=== PATIENT | male | born 1955 | race Caucasian/White ===

== ENCOUNTER 2017-08-17 06:34 | Outpatient (CLI) | payer OTHER ==
--- NOTE | ~2017-08-17 | HEMODYNAMI ---
PATIENT:MELINDA HELM MEDICAL RECORD: [id number] : 51 LOCATION:D.CAT ADMISSION DATE: 08/17/17 Generatedon:08/17/20179:01 Patient name: MELINDA HELM Patient #: [id number] SSN: : 1955 Date of study: 08/17/2017 Page: Of Hemodynamic Procedure Report Patient Data Patient Demographics Procedure consent was obtained First Name: MELINDA Gender: Male Last Name: AILEEN : 1955 [facility] Initial: EPIFANIO Age: 61 year(s) Patient #: [id number] Race: Unknown Additional ID: [id number] Contact details [address]: [address] [place] [address] State: [place] City: [place] Zip code: [address] Past Medical History Allergies: No known allergies Admission Admission Data Admission Date: 08/17/2017 Admission Time: 6:34 Lab Results Lab Result Date: 08/17/2017 Lab Result Time: 0:00 Biochemistry Name Units Result Min Max Creatinine mg/dl 1.1 --(--*-)-- 0.6 1.3 CBC Name Units Result Min Max Hemoglobin g/dl 16.2 --(--*-)-- 13.5 17.5 Procedure Procedure Types Cath Procedure Diagnostic Procedure [facility] w/Coronaries Aortic Root Angiography Miscellaneous Procedures Moderate Sedation up to 30 minutes Procedure Description Procedure Date Procedure Date: 08/17/2017 Procedure Start Time: 8:33 Procedure End Time: 9:01 Procedure Staff Name Function Fabrice Ramirez MD Performing Physician Basim Milligan RT Scrub Indu Helm RN Nurse Armida Hopper RT Monitor Procedure Data Cath Procedure Fluoroscopy Diagnostic fluoroscopy Total fluoroscopy Time: 7.4 time: 7.4 min min Diagnostic fluoroscopy Total fluoroscopy dose: dose: 1570 mGy 1570 mGy Contrast Material Contrast Material Type Amount (ml) Isovue 300 130 Entry Location Entry Primary Successful Side Size Upsize Upsize Entry Closure Succes sful Closure Location (Fr) 1 (Fr) 2 (Fr) Remarks Device Remarks Femoral Right 5 Fr Exoseal artery Estimated blood loss: 5 ml Diagnostic catheters Device Type Used For End Catheter Placement Terumo 5Fr Matteo 110cm Left Coronary catheter Angiography Diagnostic Infinity 5Fr Right Coronary AR 2 MOD catheter Angiography Diagnostic Infinity 5Fr LV Angiography Pigtail catheter Diagnostic Infinity 5Fr Aortic Root Pigtail catheter Angiography Diagnostic Terumo 5Fr Right Coronary [place] 110cm catheter Angiography Diagnostic Infinity 5Fr Right Coronary MPA-2 catheter Angiography Diagnostic Infinity 5Fr Right Coronary AL 1 catheter Angiography Procedure Complications No complications Procedure Medications Medication Administration Route Dosage Oxygen NC 2 l/min Benadryl I.V. 50 mg Lidocaine 2% added to field 20 Heparin Flush Bag added to field 2 bags (1000units/500ml NS) 0.9% NaCl I.V. 100 ml/hr Versed I.V. 1 mg Fentanyl I.V. 50 mcg Versed I.V. 1 mg Fentanyl I.V. 50 mcg Hemodynamics Rest HGB: 16.2 (g/dl) Heart Rate: 66 (bpm) Pressure Samples Time Site Value (mmHg) Purpose Heart Use Rate(bpm) 8:46 LV 142/-1,18 EDP 72 8:46 AO 133/76(102) Pullback 72 8:46 LV 156/6,30 Pullback 72 Gradients Valve Time Site 1 Site 2 Mean SEP/DFP Peak To Heart Use (mmHg) (sec/min) Peak Rate (mmHg) (bpm) Aortic 8:46 LV AO 13 7 23 72 156/6,30 133/76(102) Calculations Valve P-P Mean Valve Index Valve Source Name Gradient Area Flow (cm2) Aortic 23 13 23 13 Snapshots Pre Cath Intra NCS Post Cath Vital Signs Time Heart Resp SPO2 NIBP (mmHg) Rhythm Pain Sedation Rate (ipm) (%) Status Level (bpm) 8:19:26 63 18 99 148/93(114) NSR 0 (11) 10(A) , No pain 8:24:39 60 12 100 143/100(115) NSR 0 (11) 10(A) , No pain 8:28:49 73 16 98 145/97(111) NSR 0 (11) 10(A) , No pain 8:33:01 66 16 97 158/93(108) NSR 0 (11) 9(A) , No pain 8:37:19 72 14 97 147/92(115) NSR 0 (11) 9(A) , No pain 8:42:16 74 14 98 150/91(110) NSR 0 (11) 9(A) , No pain 8:46:34 94 15 99 137/77(109) NSR 0 (11) 9(A) , No pain 8:50:44 72 17 99 146/88(110) NSR 0 (11) 10(A) , No pain 8:54:56 71 16 99 143/91(111) NSR 0 (11) 10(A) , No pain 8:59:08 75 17 99 146/91(113) NSR 0 (11) 10(A) , No pain Medications Time Medication Route Dose Verified Delivered Reason Notes Effec tiveness by by 8:22:47 Oxygen NC 2 Fabrice Buffie used for l/min James Helm RN procedure 8:22:54 Benadryl I.V. 50 mg Fabrice Buffie used for James Helm RN procedure 8:23:02 Lidocaine 2% added 20ml Fabrice Fabrice for local to vial James Ramirez MD anesthetic field 8:23:08 Heparin Flush added 2 Fabrice Fabrice used for Bag to bags James Ramirez MD procedure (1000units/500ml field NS) 8:23:17 0.9% NaCl I.V. 100 Fabrice Buffie Per ml/hr James Helm RN physician 8:29:30 Versed I.V. 1 mg Fabrice Buffie for James Helm RN sedation 8:29:36 Fentanyl I.V. 50 Fabrice Buffie for mcg James Helm RN sedation 8:35:11 Versed I.V. 1 mg Fabrice Buffie for James Helm RN sedation 8:35:15 Fentanyl I.V. 50 Fabrice Buffie for mcg James Helm RN sedation Procedure Log Time Note 8:00:52 Indu Helm RN sent for patient. Start room use. 8:00:53 Time tracking: Regular hours 8:00:57 Plan of Care:Hemodynamics will remain stable., Cardiac rhythm will remain stable., Comfort level will be maintained., Respiratory function will remain adequate., Patient/ family verbilizes understanding of procedure., Procedure tolerated without complication., Recovers from procedure without complications.. 8:10:41 Patient received from Pre/Post Procedure Room to CCL 2 Alert and oriented. Tansferred to table in Supine position. 8:10:42 Warm blankets applied, and yasmin hugger turned on for patient comfort. 8:10:42 Correct patient and procedure confirmed by team. 8:10:43 Signed procedure consent form obtained from patient. 8:10:43 ECG and BP/O2 sat monitors applied to patient. 8:10:44 Baseline sample Acquired. 8:10:50 Full Disclosure recording started 8:18:19 Vital chart was started 8:18:23 Rhythm: sinus rhythm 8:19:02 H&P Date Dictated: 08/03/2017 Within 30 days and on chart., H&P Addendum completed by physician on day of procedure. (MUST COMPLETE FOR ALL OUTPATIENTS). 8:19:04 Pre-procedure instructions explained to patient. 8:19:05 Pre-op teaching completed and patient verbalized understanding. 8:19:06 Family in waiting room. 8:19:08 Patient NPO since Midnight. 8:19:16 Patient allergic to No known allergies 8:19:23 Is the patient allergic to Iodine/contrast media? No. 8:19:25 Is patient on blood thinner?No 8:19:27 Patient diabetic? No. 8:19:36 Previous problem with sedation/anesthesia? Yes Triggers PTSD 8:19:38 Snore? Yes 8:19:39 Sleep apnea? Yes 8:19:39 Deviated septum? No 8:19:40 Opens mouth fully? Yes 8:19:41 Sticks out tongue? Yes 8:19:43 Airway obstruction? No ? 8:19:46 Dentures? No ? 8:19:48 Pre procedure: right dorsailis pedis pulse 2+ Normal; easily identifiable; not easily obliterated 8:19:50 Patient pain scale 0/10 ?. 8:19:57 IV patent on arrival in left hand with 0.9% NaCl at O. 8:20:40 Lab Result : Creatinine 1.1 mg/dl 8:20:40 Lab Result : Hemoglobin 16.2 g/dl 8:20:44 Lab results completed and on chart. 8:20:48 Right groin area was prepped with chlora-prep and draped in sterile fashion 8:20:48 Alarms reviewed by R. N. 8:20:48 Sharps counted by scrub and verified by R.N. 8:20:51 Use device set Femoral Dx 8:20:52 Acist Syringe opened to sterile field. 8:20:53 Bag Decanter opened to sterile field. 8:20:53 Medline Cath Pack opened to sterile field. 8:20:58 Terumo 5Fr Limestone Sheath opened to sterile field. 8:20:58 St Vasu 260cm J .035 wire opened to sterile field. 8:20:59 Acist Hand Control opened to sterile field. 8:21:00 Acist Manifold opened to sterile field. 8:21:01 Tegaderm 4 x 4 opened to sterile field. 8:22:47 Oxygen 2 l/min NC was administered by Indu Helm RN; used for procedure; 8:22:54 Benadryl 50 mg I.V. was administered by Indu Helm RN; used for procedure; 8:23:02 Lidocaine 2% 20ml vial added to field was administered by Fabrice Ramirez MD; for local anesthetic; 8:23:08 Heparin Flush Bag (1000units/500ml NS) 2 bags added to field was administered by Fabrice Ramirez MD; used for procedure; 8:23:17 0.9% NaCl 100 ml/hr I.V. was administered by Indu Helm RN; Per physician; 8:23:30 Final Timeout: patient, procedure, and site verified with staff and physician. All members of the team are in agreement. 8:23:33 Right groin site verified by team. 8:23:36 Physical assessment completed. ASA score P 2 - A patient with mild systemic disease as per Fabrice Ramirez MD. 8:23:39 Sedation plan: IV Moderate Sedation Versed, Fentanyl 8:29:30 Versed 1 mg I.V. was administered by Indu Helm RN; for sedation; 8:29:36 Fentanyl 50 mcg I.V. was administered by Indu Helm RN; for sedation; 8:33:06 Procedure started. 8:33:19 Zero performed for pressure channel P1 8:33:24 Zero performed for pressure channel P1 8:33:57 Local anesthetic to right femoral artery with Lidocaine 2% by Fabrice Ramirez MD.INITIAL ACCESS ONLY 8:34:13 Baseline sample Acquired. 8:35:11 Versed 1 mg I.V. was administered by Indu Helm RN; for sedation; 8:35:15 Fentanyl 50 mcg I.V. was administered by Indu Helm RN; for sedation; 8:35:48 A 5 Fr sheath was inserted into the Right Femoral artery 8:35:57 A Terumo 5Fr Matteo 110cm catheter was advanced over the wire and used for Left Coronary Angiography. 8:40:45 Catheter removed. 8:41:19 A Diagnostic Infinity 5Fr AR 2 MOD catheter was advanced over the wire and used for Right Coronary Angiography. removed, unable to cannulate. 8:45:01 A Diagnostic Infinity 5Fr Pigtail catheter was advanced over the wire and used for LV Angiography. 8:46:14 LV gram done using QUARLES 8:46:15 LV hemodynamics recorded. 8:46:17 Injector settings: Ml/sec: 10, Volume: 20, 8:46:29 EF : 55 % 8:46:53 A Diagnostic Infinity 5Fr Pigtail catheter was advanced over the wire and used for Aortic Root Angiography. 8:47:00 Injector settings: Ml/sec: 15, Volume: 30, 8:47:16 Aortic Root visualized 8:48:12 Catheter removed. 8:51:23 A Diagnostic Terumo 5Fr [place] 110cm catheter was advanced over the wire and used for Right Coronary Angiography. removed, unable to cannulate. 8:53:04 A Diagnostic Infinity 5Fr MPA-2 catheter was advanced over the wire and used for Right Coronary Angiography. removed, unable to cannulate 8:56:05 A Diagnostic Infinity 5Fr AL 1 catheter was advanced over the wire and used for Right Coronary Angiography. 8:57:11 Catheter removed. 8:57:19 Sheath removed intact; hemostasis achieved with Exoseal to the Right Femoral artery. 8:57:27 Procedure ended.(Physican Out) 8:57:37 Fluoroscopy time 07.40 minutes. 8:57:45 Flurop Dose total: 1570 8:57:45 Fluoroscopy dose: 1570 mGy 8:57:47 Contrast amount:Isovue 300 130ml. 8:57:48 Sharps counted by scrub and verified by R.N. 8:57:54 Insertion/operative site no bleeding no hematoma. 8:57:57 Post-op/insertion site Right Femoral artery dressed using a 4 x 4 and Tegaderm. 8:58:01 Post right femoral artery:stable, clean and dry 8:58:02 Post Procedure Pulses reassessed and unchanged 8:58:05 Post-procedure physical assessment completed. ASA score P 2 - A patient with mild systemic disease as per Fabrice Ramirez MD. 8:58:07 Post procedure rhythm: unchanged. 8:58:10 Estimated blood loss: 5 ml 8:58:11 Post procedure instruction explained to patient.Patient verbalizes understanding. 8:58:11 Patient needs reinforcement of post procedure teaching. 8:58:25 Procedure type changed to Cath procedure, Diagnostic procedure, LHC, LHC w/Coronaries, Aortic Root Angiography, Miscellaneous Procedures, Moderate Sedation up to 30 minutes 8:58:36 Procedure Complication : No complications 8:58:39 See physician's report for complete and final results. 9:00:20 Cordis 5Fr Exoseal opened to sterile field. 9:00:37 Procedure and supply charges have been captured, reviewed, submitted and are correct. 9:00:54 Vital chart was stopped 9:00:56 Report given to Pre/Post Procedure Room. 9:00:59 Patient transfered to Pre/Post Procedure Room with Stretcher. 9:01:05 Procedure ended. 9:01:05 Full Disclosure recording stopped 9:01:09 End room use (Document Last) Device Usage Item Name Manufacture Quantity Catalog Hospital Part Current Minimal Lo t# / Number Charge Number Stock Stock Serial# Code Acist Acist 1 50588 158517 504009 532344 20 Syringe [employer] Bag Microtek 1 2002S 528377 55798 797151 5 Decanter [employer] Medline Cardinal 1 [id number] 913398 30777 371162 5 Cath Pack Health Terumo 5Fr Terumo 1 [id number] 243331 268708 111446 [address] Vasu St Vasu 1 093447 793694 790480 830184 30 260cm J .035 wire Acist Hand Acist 1 60193 270225 044358 158356 5 Control [employer] Inc Acist Acist 1 74956 825704 451216 100623 5 Manifold [employer] Inc Tegaderm 4 3M 1 1626W 474361 419074 838285 5 x 4 Terumo 5Fr Terumo 1 87-1100 336076 342609 508501 5 Matteo 110cm catheter Diagnostic Cardinal 1 [id number] 199184 344301 598998 20 [facility] 5Fr AR 2 MOD catheter Diagnostic Cardinal 1 [id number] 291004 194272 435404 5 [facility] 5Fr Pigtail catheter Diagnostic Terumo 1 40-9601 975216 899796 037335 5 Terumo 5Fr [place] 110cm catheter Diagnostic Cardinal 1 [id number] 861330 815535 866645 5 [facility] 5Fr MPA-2 catheter Diagnostic Cardinal 1 [id number] 276276 967479 818282 15 [facility] 5Fr AL 1 catheter Cordis 5Fr Cardinal 1 EX500 749469 510575 150330 [facility] [place] Signature Audit Ben Wheeler Stage Time Signature Unsigned Intra-Procedure 08/17/2017 Armida 9:01:21 AM Counts RT(R) Signatures Monitor : Armida Signature : Counts RT Date : Time : [id number] [place] [address]
[~2017-08-17 06:34] MED LIST: ASPIRIN325 MG PO; CELEBREX200 MG PO; GABAPENTIN; PLAVIX75 MG PO; ULTRAM50 MG PO
[2017-08-17] MEDS ORDERED: BAYER CHEWABLE81 MG PO (06:44)
[2017-08-17] MEDS ORDERED: VOLTAREN75 MG PO (06:45)
[2017-08-17] MEDS ORDERED: ROBAXIN500 MG PO (06:46)
[2017-08-17] MEDS ORDERED: CYMBALTA30 MG PO (06:47)
[2017-08-17 07:05] VITALS: BP 150/84; BMI 40.8
[2017-08-17 07:10] LABS: BASOPHILS 0.2 % (0-2); HEMOGLOBIN 16.2 g/dL (13.5-17.5); IMMATURE GRANULOCYTES 0.2 % (0-5); LYMPHOCYTES 26.4 % (15-50); MCH 31.2 pg (26.0-34.0); MCHC 33.8 g/dL (31.0-37.0); MCV 92.3 fL (80.0-100.0); MONOCYTES 11.8 % (2-11); NEUTROPHILS 58.4 % (40-80); PLATELET COUNT 198 10x3/uL (130-400); RDW 13.5 % (11.5-14.5); WBC 5.3 10x3/uL (4.8-10.8)
[2017-08-17 07:19] LABS: ANION GAP 11.7 mmol/L (8-16); CALCIUM 9.8 mg/dL (8.5-10.1); CARBON DIOXIDE 29.7 mmol/L (21.0-32.0); CREATININE - SERUM 1.1 mg/dL (0.6-1.3); POTASSIUM - SERUM 4.4 mmol/L (3.5-5.1)
--- NOTE | 2017-08-17 09:12 | NUR ---
0912 RECEIVED PT FROM OUTREACH REP. PT IS AWAKE, DENIES ANY C/O PAIN OR NAUSEA. IV LEFT AC PATENT AND INFUSING PER ORDERS. NSR PER MONITOR WITH RATE OF 74. PT DENIES ANY C/O CHEST PAIN. DRESSING TO RIGHT GROIN IS CDI, AREA IS SOFT AND NONTENDER. PEDAL PULSES PALPABLE. CALL LIGHT IN REACH.
--- NOTE | 2017-08-17 09:30 | NUR ---
0930 PARENTS AT BEDSIDE. PT DENIES ANY C/O. DRESSING CDI, PEDAL PULSES PALPABLE. CALL LIGHT IN REACH.
--- NOTE | 2017-08-17 10:02 | NUR ---
0945 PT DENIES ANY C/O. RIGHT GROIN DRESSING IS CDI, AREA SOFT AND NONTENDER. PEDAL PULSES PALPABLE. VSS. PARENTS AT BEDSIDE, WILL CONTINUE TO MONITOR.
--- NOTE | 2017-08-17 10:30 | NUR ---
DENIES ANY C/O. DRESSING CDI, AZUCENA PO FLUIDS. VSS, PARENTS AT BEDSIDE.
--- NOTE | 2017-08-17 11:13 | NUR ---
1100 HOB ELEVATED, SANDWICH SERVED. DRESSING RIGHT GROIN IS CDI, AREA IS SOFT AND NONTENDER. PEDAL PULSES PRESENT. DENIES ANY C/O. PARENTS AT BEDSIDE, CALL LIGHT IN REACH.
--- NOTE | 2017-08-17 11:30 | NUR ---
1130 IV DC'D WITH CATH INTACT. DC INSTRUCTIONS HAVE BEEN REVIEWED WITH PT AND PARENTS, WRITTEN COPIES PROVIDED. RIGHT GROIN REMAINS STABLE WITH NO BLEEDING OR HEMATOMA NOTED. PT DRESSING FOR DC TO HOME.
--- NOTE | 2017-08-17 11:51 | NUR ---
1150 PT HAS VOIDED QS, IS DRESSED FOR DC. PT ESCORTED TO PRIVATE AUTO VIA WC WITH SON DRIVING HIM HOME.
== END 2017-08-17 11:50 | disposition home or self-care (01) ==
LOC: D.CATH 06:34
PROVIDERS: Internal Medicine Cardiovascular Disease
DX: I25.119 Atherosclerotic heart disease of native coronary artery with unspecified angina pectoris (principal); R94.39 Abnormal result of other cardiovascular function study; Z01.812 Encounter for preprocedural laboratory examination

== ENCOUNTER 2018-02-19 13:56 | Observation (INO) | payer OTHER ==
[~2018-02-19] VITALS: Ht 177.8 cm; Wt 136.1 kg
--- NOTE | ~2018-02-19 | HEMODYNAMI ---
PATIENT:MELINDA GALLAGHER MEDICAL RECORD: [id number] : 51 LOCATION:[address] [id number] ADMISSION DATE: 02/19/18 Generatedon:02/20/201812:24 Patient name: MELINDA GALLAGHER Patient #: [id number] SSN: : 1955 Date of study: 02/20/2018 Page: Of Hemodynamic Procedure Report Patient Data Patient Demographics Procedure consent was obtained First Name: MELINDA Gender: Male Last Name: AILEEN : 1955 [facility] Initial: EPIFANIO Age: 62 year(s) Patient #: [id number] Race: Unknown Additional ID: [id number] Contact details Address: [address] [place] [address] State: [place] City: [place] Zip code: [address] Past Medical History Allergies: No known allergies Admission Admission Data Admission Date: 02/19/2018 Admission Time: 13:56 Room #: [facility] Lab Results Lab Result Date: 02/20/2018 Lab Result Time: 5:15 Biochemistry Name Units Result Min Max BUN mg/dl 22 --(----)-* 7 18 Creatinine mg/dl 1.1 --(--*-)-- 0.6 1.3 CBC Name Units Result Min Max Hematocrit % 47.6 --(-*--)-- 42 54 Hemoglobin g/dl 16 --(--*-)-- 13.5 17.5 Procedure Procedure Types Cath Procedure Diagnostic Procedure [facility] w/Coronaries FFR/IVUS Intra-Coronary IVUS Initial PCI Procedure Coronary Stent Coronary Stent Initial Procedure Description Procedure Date Procedure Date: 02/20/2018 Procedure Start Time: 11:55 Procedure End Time: 12:24 Procedure Staff Name Function Ponce Mireles MD Performing Physician Basim Milligan RT Monitor Guy Presley RN Nurse Armida Hopper RT Scrub Procedure Data Cath Procedure Fluoroscopy Diagnostic fluoroscopy Total fluoroscopy Time: 6.3 time: 6.3 min min Diagnostic fluoroscopy Total fluoroscopy dose: dose: 1202 mGy 1202 mGy Contrast Material Contrast Material Type Amount (ml) Isovue 300 122 Entry Location Entry Primary Successful Side Size Upsize 1 Upsize Entry Closure Rivas ccessful Closure Location (Fr) (Fr) 2 (Fr) Remarks Device Remarks Femoral Right 6 Fr 6 Fr 6 Fr Exoseal artery Short Mid-Length Short Estimated blood loss: 10 ml Diagnostic catheters Device Type Used For End Catheter Placement DIAGNOSTIC Matteo 110cm Procedure 5Fr catheter ([id number]) DIAGNOSTIC Pigtail 5Fr Procedure catheter ([id number]) Procedure Complications No complications Procedure Medications Medication Administration Route Dosage 0.9% NaCl I.V. 100 ml/hr Oxygen etCO2 Nasal cannula 2 l/min Heparin Flush Bag added to field 2 bags (1000units/500ml NS) Lidocaine 2% added to field 20 Versed I.V. 2 mg Fentanyl I.V. 100 mcg Heparin Bolus I.V. 4000 units Hemodynamics Rest HGB: 16 (g/dl) Heart Rate: 78 (bpm) Snapshots Pre Cath Intra NCS Post Cath Vital Signs Time Heart Resp SPO2 etCO2 NIBP (mmHg) Rhythm Pain Sedation Rate (ipm) (%) (mmHg) Status Level (bpm) 11:47:39 75 14 100 39.4 137/86(112) NSR 0 (11) 10(A) , No pain 11:52:46 76 15 99 34.1 137/80(108) NSR 0 (11) 10(A) , No pain 11:57:51 75 16 99 41.6 131/82(120) NSR 0 (11) 10(A) , No pain 12:02:54 80 15 99 40.9 131/76(100) NSR 0 (11) 10(A) , No pain 12:07:55 80 15 98 44.7 129/83(101) NSR 0 (11) 10(A) , No pain 12:12:54 80 14 99 43.2 130/82(104) NSR 0 (11) 10(A) , No pain 12:17:55 82 14 99 42.4 130/74(100) NSR 0 (11) 10(A) , No pain 12:22:55 81 15 98 41.6 142/85(110) NSR 0 (11) 10(A) , No pain Medications Time Medication Route Dose Verified Delivered Reason Notes Effectiveness by by 11:50:25 0.9% NaCl I.V. 100 Guy Guy Per physician ml/hr Sakina Presley RN RN 11:50:35 Oxygen etCO2 2 Guy Guy Per physician Nasal l/min Sakina Presley cannula RN RN 11:50:46 Heparin Flush added 2 Guy Guy used for Bag to bags Sakina Presley procedure (1000units/500ml field RN RN NS) 11:50:57 Lidocaine 2% added 20ml Guy Guy for local to vial Sakina Presley anesthetic RN RN 11:54:52 Versed I.V. 2 mg Guy Guy for sedation Sakina Presley RN RN 11:55:17 Fentanyl I.V. 100 Guy Guy for sedation mcg Sakina Presley RN RN 12:17:07 Heparin Bolus I.V. 4000 Guy Guy for units Sakina Presley anticoagulation RN ops manager Log Time Note 11:23:17 Time tracking: Regular hours 11:23:21 Plan of Care:Hemodynamics will remain stable., Cardiac rhythm will remain stable., Comfort level will be maintained., Respiratory function will remain adequate., Patient/ family verbilizes understanding of procedure., Procedure tolerated without complication., Recovers from procedure without complications.. 11:23:28 Armida Counts RT(R) sent for patient. Start room use. 11:36:14 Patient received from Med II to CCL 1 Alert and oriented. Tansferred to table in Supine position. 11:36:15 Warm blankets applied, and yasmin hugger turned on for patient comfort. 11:36:16 Correct patient and procedure confirmed by team. 11:36:23 Signed procedure consent form obtained from patient. 11:36:24 ECG and BP/O2 sat monitors applied to patient. 11:46:19 Vital chart was started 11:46:22 Rhythm: sinus rhythm 11:48:11 H&P Date Dictated: 02/19/2018 Within 30 days and on chart.. 11:49:01 Pre-procedure instructions explained to patient. 11:49:02 Pre-op teaching completed and patient verbalized understanding. 11:49:03 Family in waiting room. 11:49:04 Patient NPO since Midnight. 11:49:11 Patient allergic to No known allergies 11:49:13 Is the patient allergic to Iodine/contrast media? No. 11:49:13 Is patient on blood thinner?Yes 11:49:15 ACC The patient was administered the following blood thiners within the last 24 hours: ACCPlavix 11:49:17 Patient diabetic? No. 11:49:20 Previous problem with sedation/anesthesia? No ? 11:49:21 Snore? Yes 11:49:22 Sleep apnea? Yes 11:49:23 Deviated septum? No 11:49:23 Opens mouth fully? Yes 11:49:24 Sticks out tongue? Yes 11:49:31 Airway obstruction? No ? 11:49:33 Dentures? No ? 11:49:36 Pre procedure: right dorsailis pedis pulse 2+ Normal; easily identifiable; not easily obliterated 11:49:38 Patient pain scale 0/10 ?. 11:50:12 IV patent on arrival in right antecubital with 0.9% NaCl at [facility] 11:50:25 0.9% NaCl 100 ml/hr I.V. was administered by Guy Presley RN; Per physician; 11:50:35 Oxygen 2 l/min etCO2 Nasal cannula was administered by Guy Presley RN; Per physician; 11:50:46 Heparin Flush Bag (1000units/500ml NS) 2 bags added to field was administered by Guy Presley RN; used for procedure; 11:50:55 Lab Result : BUN 22 mg/dl 11:50:55 Lab Result : Creatinine 1.1 mg/dl 11:50:55 Lab Result : Hematocrit 47.6 % 11:50:55 Lab Result : Hemoglobin 16 g/dl 11:50:57 Lidocaine 2% 20ml vial added to field was administered by Guy Presley RN; for local anesthetic; 11:50:57 Lab results completed and on chart. 11:51:00 Right groin area was prepped with chlora-prep and draped in sterile fashion 11:51:01 Alarms reviewed by R. N. 11:51:02 Sharps counted by scrub and verified by R.N. 11:51:04 Use device set Femoral Dx 11:51:06 ACIST Syringe (95281) opened to sterile field. 11:51:07 Bag Decanter (2002S) opened to sterile field. 11:51:08 Medline Cath Pack ([id number]) opened to sterile field. 11:51:09 ACIST Hand Control (77690) opened to sterile field. 11:51:09 ACIST Manifold (11383) opened to sterile field. 11:51:11 Tegaderm 4 x 4 (1626W) opened to sterile field. 11:51:11 PERCUTANEOUS ENTRY 19GA needle opened to sterile field. 11:51:13 DIAGNOSTIC WIRE .035 260cm J wire (276337) opened to sterile field. 11:51:27 SHEATH 6Fr Prelude ([id number]) opened to sterile field. 11:53:38 Physician arrived 11:53:39 --------ALL STOP TIME OUT------ 11:53:39 Final Timeout: patient, procedure, and site verified with staff and physician. All members of the team are in agreement. 11:53:41 Right groin site verified by team. 11:53:46 Sedation plan: IV Moderate Sedation Medication:Versed, Fentanyl 11:53:49 Physical assessment completed. ASA score P 2 - A patient with mild systemic disease as per Ponce Mireles MD. 11:53:56 Zero performed for pressure channel P1 11:54:21 Baseline sample Acquired. 11:54:52 Versed 2 mg I.V. was administered by Guy Presley RN; for sedation; 11:55:17 Fentanyl 100 mcg I.V. was administered by Guy Presley RN; for sedation; 11:55:57 Procedure started. 11:55:57 Full Disclosure recording started 11:55:59 Local anesthetic to right femoral artery with Lidocaine 2% by Ponce Mireles MD.INITIAL ACCESS ONLY 11:57:13 A 6 Fr Short sheath was inserted into the Right Femoral artery 11:58:08 A DIAGNOSTIC Matteo 110cm 5Fr catheter (671290) was advanced over the wire and used for Procedure. 11:58:36 LCA angiography performed. 12:00:48 Catheter exchanged over wire. 12:00:49 GUIDE 6FR AL 1.0 catheter ([id number]) opened to sterile field. 12:01:37 A DIAGNOSTIC Pigtail 5Fr catheter (862491P) was advanced over the wire and used for Procedure. 12:01:54 LV gram done using QUARLES 12:01:56 Injector settings: Ml/sec: 10, Volume: 20, 12:02:08 EF : 50 % 12:02:09 Catheter removed. 12:02:19 6 Fr AL 1 guide catheter was inserted over the wire 12:03:28 Guide Catheter removed. damaged. 12:03:56 SHEATH 6FR ARROW 45cm (CL-03767) opened to sterile field. 12:04:11 Sheath upsized to a 6 Fr Mid-Length. 12:05:45 GUIDE 6FR AL 1.0 catheter (MY5UX72) opened to sterile field. 12:05:54 6 Fr al 1 guide catheter was inserted over the wire 12:06:16 INFLATOR Merit BasixCompak (DT4286) opened to sterile field. 12:07:48 CHOICE PT Extra Support 182cm wire ([id number]) opened to sterile field. 12:08:44 Russell [place]agleye IVUS Catheter (83590T) opened to sterile field. 12:08:57 choice pt wire advanced. 12:08:58 Wire advanced across lesion. 12:09:04 IVUS catheter advanced over wire. 12:10:15 IVUS Catheter malfunction. 12:10:22 Russell [place] IVUS Catheter (95898T) opened to sterile field. 12:12:35 IVUS catheter advanced over wire. 12:12:38 IVUS pass to RCA lesion performed. 12:12:40 IVUS catheter removed over wire. 12:13:10 IVUS catheter advanced over wire. 12:15:19 IVUS pass to RCA lesion performed. 12:15:21 IVUS catheter removed over wire. 12:16:49 Place stent Inflation Number: 1 A INTEGRITY RX 4.0 x 15 stent ([id number]) was prepped and advanced across the Prox RCA. The stent was deployed at 17 JIMENA for 0:10 (min:sec). 12:17:07 Heparin Bolus 4000 units I.V. was administered by Guy Presley RN; for anticoagulation; 12:17:34 Stent catheter was removed intact over wire. 12:17:35 Wire removed. 12:17:37 Guide catheter removed. 12:17:40 Sheath upsized to a 6 Fr Short. 12:17:43 EXOSEAL 6Fr (EX600) opened to sterile field. 12:17:54 Sheath removed intact; hemostasis achieved with Exoseal to the Right Femoral artery. 12:17:56 Procedure ended.(Physican Out) 12:20:09 Fluoroscopy time 06.30 minutes. 12:20:13 Flurop Dose total: 1202 12:20:13 Fluoroscopy dose: 1202 mGy 12:20:26 Contrast amount:Isovue 300 122ml. 12:20:28 Sharps counted by scrub and verified by R.N. 12:20:29 Insertion/operative site no bleeding no hematoma. 12:20:31 Post-op/insertion site Right Femoral artery dressed using a 4 x 4 and Tegaderm. 12:20:40 Post right femoral artery:stable, soft 12:20:44 Post Procedure Pulses reassessed and unchanged 12:20:47 Post-procedure physical assessment completed. ASA score P 2 - A patient with mild systemic disease as per Ponce Mireles MD. 12:20:49 Post procedure rhythm: unchanged. 12:20:56 Estimated blood loss: 10 ml 12:20:57 Post procedure instruction explained to patient.Patient verbalizes understanding. 12:20:58 Patient needs reinforcement of post procedure teaching. 12:21:27 Procedure type changed to Cath procedure, Diagnostic procedure, LHC, LHC w/Coronaries, FFR/IVUS, Intra-Coronary IVUS Initial, PCI procedure, Coronary Stent, Coronary Stent Initial 12:23:53 Procedure and supply charges have been captured, reviewed, submitted and are correct. 12:23:55 Procedure Complication : No complications 12:23:57 Vital chart was stopped 12:23:58 See physician's report for complete and final results. 12:23:59 Report given to Pre/Post Procedure Room. 12:24:01 Patient transfered to Pre/Post Procedure Room with Stretcher. 12:24:03 Procedure ended. 12:24:03 Full Disclosure recording stopped 12:24:07 End room use (Document Last) Intervention Summary Intervention Notes Time ActionType Lesion and Equipment Action# Pressure Duration Attributes Used 12:16:49 Place stent Prox RCA INTEGRITY RX 1 17 00:10 4.0 x 15 stent ([id number]) Device Usage Item Name Manufacture Quantity Catalog Number Hospital Part Current Mini mal Lot# / Charge Number Stock Stock Serial# Code ACIST Acist 1 05789 100662 186559 048480 20 Syringe Medical (60211) Systems Inc Bag Decanter Microtek 1 829246 05623 802901 5 () Medical Inc. Medline Cath Cardinal 1 [id number] 849497 37974 035648 5 Pack Health ([id number]) ACIST Hand Acist 1 95092 159758 989676 056508 5 Control Medical (37494) Systems Inc ACIST Acist 1 95097 477283 918976 291313 5 Manifold Medical (17030) Systems Inc Tegaderm 4 x 3M 1 1626W 380907 680580 307252 5 4 (1626W) PERCUTANEOUS Cook Medical 1 P00346 111553 039165 5 ENTRY 19GA needle DIAGNOSTIC [address] Vasu 1 102293 246978 050412 367856 30 WIRE .035 260cm J wire (998484) SHEATH 6Fr Merit 1 [id number] 730457 933059 782928 5 Prelude Medical ([id number]) DIAGNOSTIC Terumo 1 40-3841 599385 784680 461958 5 Matteo 110cm 5Fr catheter (722955) GUIDE 6FR AL Medtronic 2 [id number] 163064 59202 015685 1 1.0 catheter (AE7LR25) DIAGNOSTIC Cardinal 1 [id number] 383736 618545 691954 5 Pigtail 5Fr Nuvotronics catheter (684379H) SHEATH 6FR Teleflex 1 CL-70400 955909 589440 490791 5 ARROW 45cm (CL-59088) INFLATOR Merit 1 LH0845 880617 816272 802756 15 [facility] Medical BasixCompak (FO5451) CHOICE PT [place] 1 [id number] 619350 944343 371069 5 Extra Scientific Support 182cm wire ([id number]) Russell Russell 2 39513X 467697 152025 842134 8 [place] IVUS Catheter (89121C) INTEGRITY RX Medtronic 1 [id number] 145019 185759 413090 5 [id number] 4.0 x 15 stent ([id number]) EXOSEAL 6Fr Cardinal 1 EX600 584124 522781 116558 10 (EX600) Health Signature Audit [place] Stage Time Signature Unsigned Intra-Procedure 02/20/2018 Basim Milligan 12:24:46 PM RT(R) Signatures Monitor : Basim Milligan RT Signature : Date : Time : [address] [place] [address]
--- NOTE | ~2018-02-19 | OP ---
PATIENT NAME: MELINDA GALLAGHER MEDICAL RECORD: [id number] :51 LOCATION:[facility] ADMISSION DATE:02/19/18 SURGEON: IVAN OLVERA MD DATE OF OPERATION: 02/20/2018 PROCEDURES: 1. PTCA stent RCA. 2. Intravascular ultrasound RCA. 3. Left heart catheterization. 4. Selective coronary angiography. 5. Left ventriculogram. INDICATION: Angina and coronary artery disease. PROCEDURE PERFORMED: After informed consent was obtained and after a detailed description of risks, benefits as well as alternative therapies, the patient elected to proceed with angiogram and angioplasty. The right femoral area was prepped and draped in normal sterile fashion. Right femoral artery was cannulated via modified Seldinger technique with placement of 6-Taiwanese sheath. All catheters exchanged through this sheath. FINDINGS: Left ventriculogram was performed in a standard 30-degree QUARLES view, reveals good cardiac wall motion throughout all segments. Overall ejection fraction 50%. SELECTIVE CORONARY ANGIOGRAPHY: 1. Left main is with no significant angiographic disease. 2. Left anterior descending has moderate irregularities, but no flow-limiting stenosis. 3. The left circumflex has moderate irregularities, but no flow-limiting stenosis. 4. Right coronary artery has a 76% stenosis proximally confirmed by intravascular ultrasound. PTCA STENT OF THE RCA: The stent used was a 4.0 x 15 mm Integrity. Result was 0% residual stenosis. OVERALL IMPRESSION: Successful percutaneous transluminal angioplasty stent of the right coronary artery going from 76% initial stenosis to 0% residual stenosis. TRANSINT:[id number] Voice Confirmation ID: [id number] DOCUMENT ID: [id number] IVAN OLVERA MD at 1056 CC: [id number] DICTATION DATE: 02/20/18 1224 HOG FEEDER: 02/20/18 1318 DIS IN 02/20/18 [place] [address]
--- NOTE | ~2018-02-19 | DS ---
PATIENT:MELINDA GALLAGHER :51 MEDICAL RECORD: [id number] DISCHARGE SUMMARY ADMISSION DATE: 02/19/18 DISCHARGE DATE: 02/20/18 DISCHARGE DIAGNOSES: 1. Angina. 2. Coronary artery disease. 3. Percutaneous transluminal coronary angioplasty stent right coronary artery this admission. HOSPITAL COURSE: Mr. Gallagher presents with anginal symptomatology, found to have single vessel disease of the RCA, underwent successful PTCA stent of the RCA and discharged home with the addition of aspirin and Plavix to his medical regimen. He will follow up with [facility] in one month. TRANSINT:[id number] Voice Confirmation ID: [id number] DOCUMENT ID: [id number] IVAN OLVERA MD at 1056 CC: [id number] DICTATION DATE: 02/20/18 1223 CUSTODIAL AIDE: 02/20/18 1444 DIS IN 02/20/18 [place] [id number] [place] [address]
--- NOTE | ~2018-02-19 | HP ---
PATIENT: MELINDA GALLAGHER MEDICAL RECORD: [id number] ACCOUNT: [id number] [facility] 51 ADMISSION DATE: 02/19/18 HISTORY AND PHYSICAL EXAMINATION DIAGNOSES: 1. Unstable angina. 2. Coronary disease. 3. Previous PTCA, stent. 4. Chronic back pain. HISTORY: This is a gentleman with past history of coronary disease, previous PTCA and stent to the RCA, who presents with unstable anginal symptomatology. REVIEW OF SYSTEMS: The patient reports easy bruising but reports no swollen glands. The patient reports no fever, no night sweats, no significant weight gain, no significant weight loss. No significant exercise tolerance. The patient reports no dry eyes, no irritation, no vision change. Patient reports no difficulty hearing and no ear pain. Patient reports no frequent nose bleeds or nose and sinus problems. Patient reports on arm pain on exertion. No shortness of breath while lying down. No history of heart murmur. Patient reports no cough, no wheezing or coughing up blood. Patient reports no abdominal pain, no vomiting. Normal appetite. No diarrhea and not vomiting blood. No nausea and no constipation. Patient reports no incontinence. No difficulty urinating. No hematuria. No increased frequency. Patient reports no muscle aches. No weakness, no arthralgias, no back pain. No swelling of the extremities. Patient reports no abnormal mole, no jaundice, no rashes. Reports no loss of consciousness. No weakness and no numbness. No seizures, dizziness, or headaches. The patient reports no depression, no sleep disturbance, feeling safe in a relationship and no alcohol abuse. Patient reports on fatigue. Reports no runny nose or sinus pressure. No itching, no hives, and no frequent sneezing. PHYSICAL EXAMINATION: GENERAL APPEARANCE: Well-nourished, well-developed, appears stated age. Level of distress, comfortable. PSYCHIATRIC: Mental status, alert, normal affect. Orientation, oriented to time, place and person. EYES: Lids and conjunctiva, noninjected. No discharge, no pallor. ENT: Lips, teeth, gums, normal dentition. Oropharynx, no cyanosis, no pallor. NECK: Carotid arteries, bilateral normal upstroke, no bruits, no thrills. JUGULAR VEINS: No jugular venous pressure or distention. CERVICAL LYMPH NODES: Nontender, nonenlarged. THYROID: Not enlarged. Nontender. No nodules. LUNGS: Respiratory effort, unlabored. CHEST: Normal curvature. No thoracic deformity. No chest wall tenderness. Percussion, resonant. Auscultation, clear. No wheezes, no rales, no rhonchi. CARDIOVASCULAR: Precordial exam, nondisplaced. No heaves or pericardial thrills. Rate and rhythm, regular. Heart sounds, normal S1, normal S2. No S3, no gallop, no rub. Systolic murmur, not heard. Diastolic murmur, not heard. EXTREMITIES: No cyanosis, no edema. Peripheral pulses, full and equal in all extremities, except as noted. No bruits appreciated. ABDOMEN: Soft, nondistended. Normal aorta. No bruit. Nontender. No masses. Liver, nontender, no hepatomegaly. Spleen, nontender, no splenomegaly. MUSCULOSKELETAL: No joint tenderness. No joint swelling. No erythema. HISTORY AND PHYSICAL [id number] MELINDA GALLAGHER NEUROLOGICAL: Normal gait, normal strength, normal tone. SKIN: Warm and dry. OVERALL IMPRESSION: Chest pain compatible with angina in unstable fashion. Most likely, he has recurrent hemodynamically significant coronary disease. We will proceed with coronary angiography in a.m. Further care depends upon findings of the angiography. TRANSINT:[id number] Voice Confirmation ID: [id number] DOCUMENT ID: [id number] IVAN OLVERA MD at 1056 CC: [id number] DICTATION DATE: 02/19/18 1548 APPEALS WRITER: 02/19/18 1703 DIS IN 02/20/18 [place] [address] [place] [address]
[~2018-02-19 13:56] MED LIST changes: +BAYER CHEWABLE81 MG PO; +CYMBALTA30 MG PO; +ROBAXIN500 MG PO; +VOLTAREN75 MG PO
[2018-02-19 14:40] VITALS: BP 148/91; BMI 43.1
[2018-02-19 17:25] LABS: BASOPHILS 0.1 % (0-2); EOSINOPHILS 3.9 % (0-7); HEMATOCRIT 47.6 % (42.0-54.0); IMMATURE GRANULOCYTES 0.3 % (0-5); LYMPHOCYTES 26.9 % (15-50); MCH 31.4 pg (26.0-34.0); MCHC 33.6 g/dL (31.0-37.0); MCV 93.3 fL (80.0-100.0); MONOCYTES 11.8 % (2-11); PLATELET COUNT 183 10x3/uL (130-400); RDW 13.7 % (11.5-14.5); WBC 6.7 10x3/uL (4.8-10.8)
[2018-02-19 18:02] LABS: ANION GAP 15.8 mmol/L (8-16); CALCIUM 9.3 mg/dL (8.5-10.1); CARBON DIOXIDE 26.3 mmol/L (21.0-32.0); CREATININE - SERUM 1.1 mg/dL (0.6-1.3); POTASSIUM - SERUM 4.1 mmol/L (3.5-5.1)
[2018-02-19 20:00] VITALS: BP 136/79
[2018-02-20 00:49] VITALS: BP 113/58
[2018-02-20 06:46] VITALS: BP 94/58
[2018-02-20 07:44] VITALS: BP 113/74
[2018-02-20 10:51] VITALS: Ht 177.8 cm; Wt 136.1 kg
[2018-02-20 11:23] VITALS: BP 146/96
[2018-02-20] MEDS ORDERED: PLAVIX75 MG PO (12:43)
== END 2018-02-20 16:13 | disposition home or self-care (01) ==
LOC: D.M2 13:56 → OBSVTIME 13:57 → D.M2 14:16 → D.CLR 02-20 15:35
PROVIDERS: Internal Medicine Interventional Cardiology
DX: I25.110 Atherosclerotic heart disease of native coronary artery with unstable angina pectoris (principal); Z95.5 Presence of coronary angioplasty implant and graft; G89.29 Other chronic pain; M54.9 Dorsalgia, unspecified

== ENCOUNTER → 2018-04-05 08:44 | Outpatient (CLI) | payer OTHER ==
[2018-02-20 10:51] VITALS: BMI 43.0
== END | disposition home or self-care (01) ==
LOC: D.US 08:44
DX: R22.42 Localized swelling, mass and lump, left lower limb (principal); M79.605 Pain in left leg

== ENCOUNTER → 2018-04-12 12:15 | Outpatient (CLI) | payer OTHER ==
[2018-02-20 10:51] VITALS: BMI 43.0
== END | disposition home or self-care (01) ==
LOC: D.CT 12:15
DX: R06.02 Shortness of breath (principal); I82.409 Acute embolism and thrombosis of unspecified deep veins of unspecified lower extremity

== ENCOUNTER → 2019-01-03 11:19 | Outpatient (CLI) | payer OTHER ==
[2018-02-20 10:51] VITALS: BMI 43.0
== END | disposition home or self-care (01) ==
LOC: D.HCCARDIO 11:19
DX: I25.10 Atherosclerotic heart disease of native coronary artery without angina pectoris (principal)

== ENCOUNTER 2019-01-17 06:22 | Outpatient (CLI) | payer OTHER ==
[~2019-01-17] VITALS: Ht 177.8 cm; Wt 136.4 kg
--- NOTE | ~2019-01-17 | HEMODYNAMI ---
PATIENT:MELINDA GALLAGHER MEDICAL RECORD: [id number] : 51 LOCATION:D.CAT ADMISSION DATE: 01/17/19 Generatedon:01/17/201910:15 Patient name: MELINDA GALLAGHER Patient #: [id number] SSN: : 1955 Date of study: 01/17/2019 Page: Of Hemodynamic Procedure Report Patient Data Patient Demographics Procedure consent was obtained First Name: MELINDA Gender: Male Last Name: AILEEN : 1955 [facility] Initial: EPIFANIO Age: 63 year(s) Patient #: [id number] Race: Unknown Additional ID: [id number] Contact details [address]: [address] [place] [address] State: [place] City: [place] Zip code: [address] Past Medical History Allergies Allergen Reaction Date Comments Reported Other allergy 01/17/2019 Codeine Admission Admission Data Admission Date: 01/17/2019 Admission Time: 6:22 Admit Source: Other Weight (lbs.): 300.49 Weight (kg.): 136.3 Lab Results Lab Result Date: 01/17/2019 Lab Result Time: 7:15 Biochemistry Name Units Result Min Max BUN mg/dl 24 --(----)-* 7 18 Creatinine mg/dl 1.3 --(---*)-- 0.6 1.3 CBC Name Units Result Min Max Hematocrit % 43.8 --(*---)-- 42 54 Hemoglobin g/dl 14.6 --(-*--)-- 13.5 17.5 Procedure Procedure Types Cath Procedure Diagnostic Procedure LHC LHC w/Coronaries Aortic Root Angiography Sedation Charges Moderate Sedation up to 45 minutes PCI Procedure Coronary Stent Coronary Stent Initial Procedure Description Procedure Date Procedure Date: 01/17/2019 Procedure Start Time: 9:20 Procedure End Time: 10:14 Procedure Staff Name Function Fabrice Ramirez MD Performing Physician Tani Harden RT Leather Sprayer Basim Milligan RT Monitor Nadege Rivera RT Scrub Tracey Robi RN Nurse Procedure Data Cath Procedure Fluoroscopy Diagnostic fluoroscopy Total fluoroscopy Time: time: 19.1 min 19.1 min Diagnostic fluoroscopy Total fluoroscopy dose: dose: 2651 mGy 2651 mGy Contrast Material Contrast Material Type Amount (ml) Isovue 300 214 Entry Location Entry Primary Successful Side Size Upsize Upsize Entry Closure Succes sful Closure Location (Fr) 1 (Fr) 2 (Fr) Remarks Device Remarks Femoral Right 5 Fr 6 Fr 6 Fr Exoseal artery Short Short Estimated blood loss: 10 ml Diagnostic catheters Device Type Used For End Catheter Placement DIAGNOSTIC Matteo 110cm Procedure 5Fr catheter (576506) DIAGNOSTIC AL1 5Fr Procedure catheter ([id number]) DIAGNOSTIC Pigtail 5Fr Procedure catheter ([id number]) Procedure Complications No complications Procedure Medications Medication Administration Route Dosage 0.9% NaCl I.V. 100 ml/hr Oxygen etCO2 Nasal cannula 2 l/min Lidocaine 2% added to field 20 Heparin Flush Bag added to field 2 bags (1000units/500ml NS) Versed I.V. 2 mg Fentanyl I.V. 50 mcg Versed I.V. 2 mg Fentanyl I.V. 50 mcg Versed I.V. 2 mg Heparin Bolus I.V. 55808 units Plavix P.O. 600 mg Hemodynamics Rest HGB: 14.6 (g/dl) Heart Rate: 82 (bpm) Pressure Samples Time Site Value (mmHg) Purpose Heart Use Rate(bpm) 9:30 LV 136/5,22 Snapshot 87 9:30 AO 113/71(88) Pullback 88 9:30 LV 148/6,19 Pullback 88 Gradients Valve Time Site 1 Site 2 Mean SEP/DFP Peak To Heart Use (mmHg) (sec/min) Peak Rate (mmHg) (bpm) Aortic 9:30 LV AO 23 20 35 88 148/6,19 113/71(88) Calculations Valve P-P Mean Valve Index Valve Source Name Gradient Area Flow (cm2) Aortic 35 23 35 23 Snapshots Pre Cath Intra NCS Post Cath Vital Signs Time Heart Resp SPO2 etCO2 NIBP (mmHg) Rhythm Pain Sedation Rate (ipm) (%) (mmHg) Status Level (bpm) 8:59:10 77 14 100 39.2 138/85(107) NSR 0 (11) 10(A) , No pain 9:03:36 84 17 97 36.2 134/87(112) NSR 0 (11) 10(A) , No pain 9:08:01 81 10 98 21.8 136/85(103) NSR 0 (11) 10(A) , No pain 9:12:23 87 11 96 12 132/84(113) NSR 0 (11) 10(A) , No pain 9:16:47 87 13 97 43 133/85(115) NSR 0 (11) 10(A) , No pain 9:21:11 85 14 98 38.4 123/81(99) NSR 0 (11) 9(A) , No pain 9:26:37 84 9 96 37.7 128/78(110) NSR 0 (11) 9(A) , No pain 9:31:01 88 9 98 40.7 122/80(94) NSR 0 (11) 9(A) , No pain 9:35:25 87 8 98 18.1 127/71(96) NSR 0 (11) 9(A) , No pain 9:39:48 86 13 98 39.9 127/80(93) NSR 0 (11) 10(A) , No pain 9:44:08 84 19 99 39.2 124/82(100) NSR 0 (11) 9(A) , No pain 9:48:28 87 10 98 22.6 132/85(104) NSR 0 (11) 9(A) , No pain 9:52:52 86 14 99 37 126/85(110) NSR 0 (11) 9(A) , No pain 9:57:12 84 10 97 38.4 123/87(103) NSR 0 (11) 9(A) , No pain 10:01:32 85 8 98 36.9 128/88(107) NSR 0 (11) 9(A) , No pain 10:05:58 84 10 99 37.6 135/77(105) NSR 0 (11) 9(A) , No pain 10:11:20 85 19 99 36.9 131/89(110) NSR 0 (11) 10(A) , No pain Medications Time Medication Route Dose Verified Delivered Reason Notes Effectiveness by by 8:58:04 0.9% NaCl I.V. 100 Fabrice Tracey used for ml/hr James Rosenbaum tin container straightener 8:58:18 Oxygen etCO2 2 Fabrice Tracey used for Nasal l/min James Rosenbaum procedure cannula RN 8:58:23 Lidocaine 2% added 20ml Fabrice Fabrice for local to vial James Ramirez MD anesthetic field 8:58:30 Heparin Flush added 2 Fabrice Fabrice used for Bag to bags James Ramirez MD procedure (1000units/500ml field NS) 9:13:20 Fentanyl I.V. 50 Fabrice Tracey for sedation mcg James Rosenbaum RN 9:13:21 Versed I.V. 2 mg Fabrice Tracey for sedation James Rosenbaum RN 9:18:56 Versed I.V. 2 mg Fabrice Tracey for sedation James Rosenbaum RN 9:19:00 Fentanyl I.V. 50 Fabrice Tracey for sedation mcg James Rosenbaum RN 9:41:13 Versed I.V. 2 mg Fabrice Tracey for sedation James Rosenbaum RN 10:03:03 [place].V. 30611 Fabrice Tracey for verif ied units James Rosenbaum anticoagulation with DrJordon Ramirez 10:13:42 Plavix P.O. 600 Fabrice Tracey for mg James Rosenbaum antiplatelet RN therapy Procedure Log Time Note 8:41:41 Informed consent obtained and on chart 8:41:44 Admit Source: Other 8:42:00 Diagnostic Cath status Elective 8:42:02 Tani Harden RT(R) sent for patient. Start room use. 8:42:09 Time tracking: Regular hours (M-F 7:00 - 5:00) 8:42:12 Plan of Care:Hemodynamics will remain stable., Cardiac rhythm will remain stable., Comfort level will be maintained., Respiratory function will remain adequate., Patient/ family verbilizes understanding of procedure., Procedure tolerated without complication., Recovers from procedure without complications.. 8:42:20 H&P Date Dictated: 12/24/2018 Within 30 days and on chart., H&P Addendum completed by physician on day of procedure. (MUST COMPLETE FOR ALL OUTPATIENTS). 8:43:28 Lab Result : BUN 24 mg/dl 8:43:28 Lab Result : Hematocrit 43.8 % 8:43:28 Lab Result : Hemoglobin 14.6 g/dl 8:43:28 Lab Result : Creatinine 1.3 mg/dl 8:43:35 Patient Weight : 300.49 lbs 8:50:22 Patient received from Pre/Post Procedure Room to CCL 1 Alert and oriented. Tansferred to table in Supine position. 8:50:25 Warm blankets applied, and yasmin hugger turned on for patient comfort. 8:50:26 Correct patient and procedure confirmed by team. 8:50:28 ECG and BP/O2 sat monitors applied to patient. 8:50:30 Pre-procedure instructions explained to patient. 8:50:30 Pre-op teaching completed and patient verbalized understanding. 8:50:32 Family in waiting room. 8:57:51 Vital chart was started 8:58:04 0.9% NaCl 100 ml/hr I.V. was administered by Tracey Rosenbaum RN; used for procedure; 8:58:18 Oxygen 2 l/min etCO2 Nasal cannula was administered by Tracey Rosenbaum RN; used for procedure; 8:58:23 Lidocaine 2% 20ml vial added to field was administered by Fabrice Ramirez MD; for local anesthetic; 8:58:30 Heparin Flush Bag (1000units/500ml NS) 2 bags added to field was administered by Fabrice Ramirez MD; used for procedure; 9:07:47 Baseline sample Acquired. 9:07:50 Rhythm: sinus rhythm 9:07:53 Full Disclosure recording started 9:07:55 Patient NPO since Midnight. 9:08:05 Patient allergic to Other allergyCodeine 9:08:14 Is the patient allergic to Iodine/contrast media? No. 9:08:15 Is patient on blood thinner?Yes 9:08:17 Patient diabetic? No. 9:08:19 Previous problem with sedation/anesthesia? No ? 9:08:21 Snore? Yes 9:08:21 Sleep apnea? Yes 9:08:22 Deviated septum? No 9:08:23 Opens mouth fully? Yes 9:08:28 Sticks out tongue? Yes 9:08:30 Airway obstruction? No ? 9:08:31 Dentures? No ? 9:08:35 Pre procedure: right dorsailis pedis pulse 2+ Normal; easily identifiable; not easily obliterated 9:08:38 Patient pain scale 0/10 ?. 9:08:43 IV patent on arrival in left forearm with 0.9% NaCl at KVO. 9:08:45 Lab results completed and on chart. 9:08:47 Right groin area was prepped with chlora-prep and draped in sterile fashion 9:08:48 Alarms reviewed by R. N. 9:08:49 Sharps counted by scrub and verified by R.N. 9:10:34 Zero performed for pressure channel P1 9:12: Physician arrived 9:: --------ALL STOP TIME OUT------ :: Final Timeout: patient, procedure, and site verified with staff and physician. All members of the team are in agreement. 9:12:28 Right groin site verified by team. 9:13:20 Fentanyl 50 mcg I.V. was administered by Tracey Rosenbaum RN; for sedation; 9:13:21 Versed 2 mg I.V. was administered by Tracey Rosenbaum RN; for sedation; 9:14:57 Maximum allowable Isovue 300 dose 300ml. Physician notified. (300ml for normal creatinines. For patients with creatinine of 1.7 or higher multiply weight(kg) x 5 divided by creatinine.) 9:15:11 ACIST Syringe (70372) opened to sterile field. 9:15:12 Bag Decanter (2002S) opened to sterile field. 9:15:12 Medline Cath Pack ([id number]) opened to sterile field. 9:15:13 DIAGNOSTIC WIRE .035 260cm J wire (801651) opened to sterile field. 9:15:14 ACIST Manifold (96865) opened to sterile field. 9:15:14 ACIST Hand Control (50520) opened to sterile field. 9:15:16 Tegaderm 4 x 4 (1626W) opened to sterile field. 9:15:17 SHEATH 5FR [place] (ILP819) opened to sterile field. 9:16:00 Fire Safety Assessment: A--An alcohol-based skin anteseptic being used preoperatively., C--Open oxygen or nitrous oxide is being used., D--An ESU, laser, or fiber-optic light is being used. 9:16:05 Sedation plan: IV Moderate Sedation Medication:Versed, Fentanyl 9:18:56 Versed 2 mg I.V. was administered by Tracey Rosenbaum RN; for sedation; 9:19:00 Fentanyl 50 mcg I.V. was administered by Tracey Rosenbaum RN; for sedation; 9:20:02 Procedure started. 9:20:05 Local anesthetic to right femoral artery with Lidocaine 2% by Fabrice Ramirez MD.INITIAL ACCESS ONLY 9:20:11 A 5 Fr sheath was inserted into the Right Femoral artery 9:22:11 A DIAGNOSTIC Matteo 110cm 5Fr catheter (376899) was advanced over the wire and used for Procedure. 9:24:23 LCA angiography performed. 9:26:20 Catheter exchanged over wire. 9:26:26 A DIAGNOSTIC AL1 5Fr catheter (618348S) was advanced over the wire and used for Procedure. 9:28:27 A DIAGNOSTIC Pigtail 5Fr catheter (042874S) was advanced over the wire and used for Procedure. 9:28:30 Catheter exchanged over wire. 9:29:46 LV hemodynamics recorded. 9:30:06 LV gram done using QUARLES 9:30:09 Injector settings: Ml/sec: 10, Volume: 20, 9:30:24 EF : 45 % 9:31:08 Aortic Root visualized 9:34:43 Catheter removed. 9:35:05 SHEATH 6FR [place] (RGT413) opened to sterile field. 9:35:06 TUBING High Pressure Extension Tubing (James) (VS8311P) opened to sterile field. 9:35:07 INFLATOR Merit BasixCompak (NG4267) opened to sterile field. 9:35:07 BMW 300cm [place] 2 J wire (7302979V) opened to sterile field. 9:35:08 GUIDE 6FR XBLAD 4.0 catheter (18356226) opened to sterile field. 9:36:25 Sheath upsized to a 6 Fr Short. 9:36:33 6 Fr xblad 3.5 guide catheter was inserted over the wire 9:39:04 Guide Catheter removed. unable to cannulate vessel. 9:39:11 GUIDE 6FR JL 5.0 catheter (QQ6JY42) opened to sterile field. 9:39:21 6 Fr jl 5 guide catheter was inserted over the wire 9:41:13 Versed 2 mg I.V. was administered by Tracey Rosenbaum RN; for sedation; 9:41:47 Guide Catheter removed. unable to cannulate vessel. 9:42:17 GUIDE 6FR JL 4.0 catheter (ZO3ID01) opened to sterile field. 9:42:25 6 Fr JL 4 guide catheter was inserted over the wire 9:44:58 Guide Catheter removed. unable to cannulate vessel. 9:47:35 GUIDE 6FR EBU 4.0 guide catheter ([id number]) opened to sterile field. 9:47:49 6 Fr EBU 4 guide catheter was inserted over the wire 9:48:45 Wire removed. unable to cannulate vessel. 9:50:27 GUIDE 6FR Q 4.0 catheter ([id number]) opened to sterile field. 9:50:34 6 Fr Q 4 guide catheter was inserted over the wire 9:52:48 Guide Catheter removed. unable to cannulate vessel. 9:53:53 GUIDE 6FR Q 3.5 catheter ([id number]) opened to sterile field. 9:54:21 6 Fr Q 3.5 guide catheter was inserted over the wire 9:56:59 Guide Catheter removed. unable to cannulate vessel. 9:57:08 SHEATH 6FR Dest[place] (RSR01) opened to sterile field. 9:57:16 Sheath upsized to a 6 Fr Short. 10:02:16 6 Fr Q 4 guide catheter was inserted over the wire 10:03:00 BMW wire advanced. 10:03:03 Heparin Bolus 54996 units I.V. was administered by Tracey Rosenbaum RN; for anticoagulation; verified with Dr. Ramirez 10:05:49 Wire advanced across lesion. 10:08:35 Place stent Inflation Number: 1 A INTEGRITY OTW 3.5 X 26 stent ([id number]) was prepped and advanced across the Prox LAD. The stent was deployed at 13 JIMENA for 0:10 (min:sec). 10:09:56 Stent catheter was removed intact over wire. 10:09:57 Wire removed. 10:09:57 Guide catheter removed. 10:10:02 EXOSEAL 6Fr (EX600) opened to sterile field. 10:10:47 Sheath exchanged for 6Fr. Short. 10:10:54 Sheath removed intact; hemostasis achieved with Exoseal to the Right Femoral artery. 10:10:56 Procedure ended.(Physican Out) 10:11:29 Fluoroscopy time 19.10 minutes. 10:11:35 Flurop Dose total: 2651 10:11:35 Fluoroscopy dose: 2651 mGy 10:11:41 Contrast amount:Isovue 300 214ml. 10:11:43 Sharps counted by scrub and verified by R.N. 10:11:44 Insertion/operative site no bleeding no hematoma. 10:11:48 Post-op/insertion site Right Femoral artery dressed using a 4 x 4 and Tegaderm. 10:11:53 Post right femoral artery:stable, soft, clean and dry 10:12:09 Post Procedure Pulses reassessed and unchanged 10:12:11 Post-procedure physical assessment completed. ASA score P 2 - A patient with mild systemic disease as per Fabrice Ramirez MD. 10:12:14 Post procedure rhythm: unchanged. 10:12:17 Estimated blood loss: 10 ml 10:12:19 Post procedure instruction explained to patient.Patient verbalizes understanding. 10:12:19 Patient needs reinforcement of post procedure teaching. 10:13:37 Procedure type changed to Cath procedure, Diagnostic procedure, LHC, LHC w/Coronaries, Aortic Root Angiography, Sedation Charges, Moderate Sedation up to 45 minutes, PCI procedure, Coronary Stent, Coronary Stent Initial 10:13:42 Plavix 600 mg P.O. was administered by Tracey Rosenbaum RN; for antiplatelet therapy; 10:14:14 Procedure and supply charges have been captured, reviewed, submitted and are correct. 10:14:18 Procedure Complication : No complications 10:14:20 Vital chart was stopped 10:14:21 See physician's report for complete and final results. 10:14:22 Report given to Pre/Post Procedure Room. 10:14:25 Patient transfered to Pre/Post Procedure Room with Stretcher. 10:14:27 Procedure ended. 10:14:27 Full Disclosure recording stopped 10:14:32 End room use (Document Last) Intervention Summary Intervention Notes Time ActionType Lesion and Equipment Action# Pressure Duration Attributes Used 10:08:35 Place stent Prox LAD INTEGRITY 1 13 00:10 OTW 3.5 X 26 stent ([id number]) Device Usage Item Name Manufacture Quantity Catalog Number Hospital Part Current Minim al Lot# / Charge Number Stock Stock Serial# Code DIAGNOSTIC Terumo 1 00-2797 716127 222999 293644 5 Matteo 110cm 5Fr catheter (259331) DIAGNOSTIC Cardinal 1 [id number] 565939 314468 079124 15 AL1 5Fr Health catheter (359992H) DIAGNOSTIC Cardinal 1 [id number] 691084 565413 311715 5 Pigtail 5Fr Health catheter (822297U) SHEATH 6FR Terumo 1 UWH344 396840 547097 549759 40 [place] (TFN936) TUBING High Merit 1 [id number] 791280 69173 434006 10 Pressure Medical Extension Tubing (Ramirez) (MA4367Y) INFLATOR Merit 1 MX4453 734676 093349 754872 15 [facility] Medical BasixCompak (FA2505) BMW 300cm [place]oe 1 [id number] 488559 772841 258538 5 [place] 2 Vascular J wire (6399712B) GUIDE 6FR Cardinal 1 [id number] 940737 471802 872707 3 XBLAD 4.0 Health catheter (86894723) ACIST Acist 1 63215 235004 923557 333821 20 Syringe Medical (49916) Systems Inc Bag Microtek 1 2001S 667265 30247 984085 5 Decanter Medical Inc. () Medline Medline 1 [id number] 197189 10613 847020 5 Cath Pack ([id number]) DIAGNOSTIC St Vasu 1 409610 904796 232905 357722 30 WIRE .035 260cm J wire (987272) ACIST Hand Acist 1 22339 744740 266709 367101 5 Control Medical (55031) Systems Inc ACIST Acist 1 00103 633647 426778 786191 5 Manifold Medical (63417) Systems Inc Tegaderm 4 3M 1 1626W 888955 250722 256136 5 x 4 (1626W) SHEATH 5FR Terumo 1 TPU356 698798 273802 875747 5 [place] (QYS809) GUIDE 6FR Medtronic 1 MQ4EF69 631188 95729 795716 1 JL 5.0 catheter (QE1ZH61) GUIDE 6FR Medtronic 1 XO2MU14 343973 59183 274926 1 JL 4.0 catheter (TA6YQ87) GUIDE 6FR Medtronic 1 HR9NUP00 320097 67176 973703 1 EBU 4.0 guide catheter (HQ0PVU86) GUIDE 6FR Q [place] 1 [id number] 786461 164993 888986 1 4.0 Scientific catheter (921844507) GUIDE 6FR Q [place] 1 [id number] 649487 093195 9207752 1 3.5 Scientific catheter (014080487) SHEATH 6FR Terumo 1 RSR01 016847 47245 357469 5 Destination (RSR01) INTEGRITY Medtronic 1 [id number] 518714 361013 636236 0 [id number] OTW 3.5 X 26 stent ([id number]) EXOSEAL 6Fr Cardinal 1 EX600 612852 114679 605141 10 (EX600) Health Signature Audit [place] Stage Time Signature Unsigned Intra-Procedure 01/17/2019 Basim Milligan 10:15:36 AM RT(R) Signatures Monitor : Basim Milligan RT Signature : Date : Time : [place] [id number] [place] [address]
[2019-01-17] MEDS ORDERED: XARELTO20 MG PO (06:54)
[2019-01-17] MEDS ORDERED: ULTRAM50 MG PO (06:54)
[2019-01-17] MEDS ORDERED: CYMBALTA60 MG PO (06:55)
[2019-01-17] MEDS ORDERED: COZAAR50 MG PO (06:55)
[2019-01-17 07:16] VITALS: BP 116/74; Ht 177.8 cm; Wt 136.4 kg
[2019-01-17 07:27] LABS: BASOPHILS 0.2 % (0-2); EOSINOPHILS 3.6 % (0-7); HEMATOCRIT 43.8 % (42.0-54.0); HEMOGLOBIN 14.6 g/dL (13.5-17.5); IMMATURE GRANULOCYTES 0.2 % (0-5); LYMPHOCYTES 23.1 % (15-50); MCH 30.9 pg (26.0-34.0); MCHC 33.3 g/dL (31.0-37.0); MCV 92.8 fL (80.0-100.0); MEAN PLATELET VOLUME 10.1 fL (7.4-10.4); NEUTROPHILS 61.9 % (40-80); PLATELET COUNT 208 10x3/uL (130-400); RBC 4.72 10x6/uL (4.20-6.10); RDW 13.8 % (11.5-14.5); WBC 5.8 10x3/uL (4.8-10.8)
[2019-01-17 07:43] LABS: ANION GAP 12.9 mmol/L (8-16); CALCIUM 9.7 mg/dL (8.5-10.1); CARBON DIOXIDE 28.8 mmol/L (21.0-32.0); CREATININE - SERUM 1.3 mg/dL (0.6-1.3); POTASSIUM - SERUM 4.7 mmol/L (3.5-5.1)
--- NOTE | 2019-01-17 10:30 | NUR ---
RECIEVED TO ROOM VIA STRETCHER FROM [employer] WITH 6 FR EXOSEAL R/GROIN CDI NO BLEEDING OR HEMATOMA NOTED. PATIENT CONNECTED TO MONITOR FOR OBSERVATION WITH HR 79 BP 132/81. CHEST PAIN IS DENIED
[2019-01-17] MEDS ORDERED: PLAVIX75 MG PO (10:46)
--- NOTE | 2019-01-17 11:00 | NUR ---
RESTING QUIETLY WITH NO DISTRESS. 6 FR EXOSEAL R/GROIN IS CDI WITH CHEST PAIN DENIED
--- NOTE | 2019-01-17 11:30 | NUR ---
CHEST PAIN IS DENIED 6 FR EXOSEAL R/GROIN IS CDI WITH NO BLEEDING NOTED. PATIENT VOIDS 300 CC CLEAR YELLOW URINE TO COLLECTION.
--- NOTE | 2019-01-17 12:00 | NUR ---
SANDWICH AND SODA TO BEDSIDE NAUSEA DENIED. 6 FR EXOSEAL R/GROIN REMAINS CDI NO BLEEDING OR HEMATOMA NOTED
--- NOTE | 2019-01-17 13:04 | NUR ---
RESTING QUIETLY WITH NO DISTRESS NOTED.6 FR EXOSEAL R/GROIN IS CDI NO BLEEDING OR HEMATOMA NOTED. VSS
--- NOTE | 2019-01-17 13:19 | NUR ---
PATIENT CONTINUES TO SLEEP WITH NO DISTRESS NOTED. CALL LIGHT IN REACH
--- NOTE | 2019-01-17 13:35 | NUR ---
REPORT AND CARE FROM DAVID FREEDMAN RN. PT IS ALERT, DENIES ANY C/O PAIN OR NAUSEA. HOB ELEVATED 30 DEGREES, DRESSING TO RIGHT GROIN IS CDI, AREA IS SOFT AND NONTENDER. PEDAL PULSES PALPABLE. CALL LIGHTH IN REACH.
--- NOTE | 2019-01-17 13:39 | NUR ---
PT VOIDED 400 CC CLEAR YELLOW URINE TO URINAL .
--- NOTE | 2019-01-17 13:48 | NUR ---
HOB FURTHER ELEVATED, DRESSING REMAINS CDI TO RIGHT GROIN, VSS. PT IS ALERT AND DENIES ANY C/O AT THIS TIME. PEDAL PULSES PALPABLE. CALL LIGHT IN REACH.
--- NOTE | 2019-01-17 14:22 | NUR ---
1500 HOB FULLY ELEVATED, NO BLEEDING OR HEMATOMA NOTED AT CATH SITE. PEDAL PULSES PALPABLE. PT IS ALERT AND DENIES ANY C/O. 1520 DC INSTRUCTIONS REVIEWED WIT PT WHO VERBALIZES UNDERSTADNING. PRLAVIX PRESCRITION TO PATIENT AND HE VERBALIZES UNDERSTANDING TO START THIS MEDICATION TOMORROW. IV DC'D WITH CATH INTACT. PT DDRESSING FOR DC TO HOME WITH ASSIST.
--- NOTE | 2019-01-17 14:32 | NUR ---
PT HAS DRESSED FOR DC TO HOME WITH ASSIST. IS ALERT AND DENIES ANY C/O AT THIS TIME. PT ESCORTED TO PRIVATE AUTO VIA WC BY NURSE WITH DAUGHTER DRIVING HIM HOME. PT HAS ALL PERSONAL BELONGINGS AND DC INSTRUCTIONS AT TIME OF DISCHARGE. DAUGHTER VERBALIZES UNDERSTANDING OF PT STARTING PLAVIX TOMORROW AND GETTING THIS PRESCRIPTION FILLED.
== END 2019-01-17 14:30 | disposition home or self-care (01) ==
LOC: D.CATH 06:22
PROVIDERS: ATTEND Internal Medicine Cardiovascular Disease
DX: I25.119 Atherosclerotic heart disease of native coronary artery with unspecified angina pectoris (principal); Z01.812 Encounter for preprocedural laboratory examination

== ENCOUNTER → 2020-02-13 08:27 | Outpatient (CLI) | payer OTHER ==
[2019-01-17 07:16] VITALS: BMI 43.1
[~2020-02-13 08:27] MED LIST changes: +COZAAR50 MG PO; +CYMBALTA60 MG PO; +XARELTO20 MG PO
== END | disposition home or self-care (01) ==
LOC: D.HCCARDIO 08:27
PROVIDERS: ATTEND Internal Medicine Cardiovascular Disease
DX: I25.10 Atherosclerotic heart disease of native coronary artery without angina pectoris (principal)

== ENCOUNTER → 2020-02-26 12:46 | Outpatient (CLI) | payer OTHER ==
[~2020-02-26] VITALS: Ht 177.8 cm; Wt 127.3 kg
--- NOTE | ~2020-02-26 | HEMODYNAMI ---
PATIENT:MELINDA HELM MEDICAL RECORD: [id number] : 51 LOCATION:D.CAT ADMISSION DATE: 02/26/20 Generatedon:02/26/202015:56 Patient name: MELINDA HELM Patient #: [id number] SSN: [id number] : 1955 Date of study: 02/26/2020 Page: Of Hemodynamic Procedure Report Patient Data Patient Demographics Procedure consent was obtained First Name: MELINDA Gender: Male Last Name: AILEEN : 1955 [facility] Initial: EPIFANIO Age: 64 year(s) Patient #: [id number] Race: SSN: [id number] Additional ID: [id number] Contact details [address]: [address] [place] [address] State: [place] City: [place] Zip code: [address] Past Medical History Performed procedures and imaging results Date Procedure Procedure Results Comments 02/13/2020 Stress testing Positive->Intermediate with SPECT MPI risk Allergies Allergen Reaction Date Comments Reported Other allergy 01/17/2019 Codeine Admission Admission Data Admission Date: 02/26/2020 Admission Time: 12:46 Arrival Date: 02/26/2020 Arrival Time: 0:00 Admit Source: Other Insurance Payor: Private health insurance [facility] #: [id number] Height (in.): 69 BSA: 2.4 (m2) Height (cm.): 175.26 BMI: 41.94 (kg/m2) Weight (lbs.): 284 Weight (kg.): 128.82 Lab Results Lab Result Date: 02/26/2020 Lab Result Time: 0:00 Biochemistry Name Units Result Min Max BUN mg/dl 26 --(----)-* 7 18 Creatinine mg/dl 0.9 --(-*--)-- 0.6 1.3 eGFR ml/min 90 --(*---)-- 90 120 NONAFRICAN CBC Name Units Result Min Max Hemoglobin g/dl 15.2 --(-*--)-- 13.5 17.5 Procedure Procedure Types Cath Procedure Diagnostic Procedure [facility] w/Coronaries Sedation Charges Moderate Sedation up to 15 minutes Procedure Description Procedure Date Procedure Date: 02/26/2020 Procedure Start Time: 15:28 Procedure End Time: 15:52 Procedure Staff Name Function Indu Helm RN Nurse Fabrice Ramirez MD Performing Physician Carmen Botello RT Scrub Coni Verde RT Monitor Procedure Data Cath Procedure Fluoroscopy Diagnostic fluoroscopy Total fluoroscopy Time: 6.6 time: 6.6 min min Diagnostic fluoroscopy Total fluoroscopy dose: 979 dose: 979 mGy mGy Contrast Material Contrast Material Type Amount (ml) Isovue 300 93 Entry Location Entry Primary Successful Side Size Upsize Upsize Entry Closure Succes sful Closure Location (Fr) 1 (Fr) 2 (Fr) Remarks Device Remarks Femoral Right 6 Fr Exoseal artery Short Estimated blood loss: 5 ml Diagnostic catheters Device Type Used For End Catheter Placement MULTIPACK JL 4.0 5Fr Left Coronary catheter Angiography DIAGNOSTIC JL 5 5Fr Left Coronary catheter ([id number]) Angiography DIAGNOSTIC Matteo 110cm Left Coronary 5Fr catheter ([id number]) Angiography DIAGNOSTIC AL1 5Fr Right Coronary catheter ([id number]) Angiography DIAGNOSTIC AL2 5Fr Right Coronary catheter ([id number]) Angiography MULTIPACK Pigtail 5 Fr LV Angiography catheter Procedure Complications No complications Procedure Medications Medication Administration Route Dosage Oxygen etCO2 Nasal cannula 2 l/min Lidocaine 2% added to field 20 Heparin Flush Bag added to field 2 bags (1000units/500ml NS) 0.9% NaCl I.V. 100 ml/hr Versed I.V. 1 mg Fentanyl I.V. 50 mcg Versed I.V. 1 mg Fentanyl I.V. 50 mcg Hemodynamics Rest BSA: 2.4 (m2) HGB: 15.2 (g/dl) O2 Consumption: Estimated: 293.22 (ml/min) O2 Con sumption indexed: Estimated:122.17 (ml/min/m) Heart Rate: 85 (bpm) Pressure Samples Time Site Value (mmHg) Purpose Heart Use Rate(bpm) 15:45 LV 126/-4,9 Snapshot 90 15:45 AO 103/69(85) Pullback 90 15:45 LV 123/4,10 Pullback 90 Gradients Valve Time Site 1 Site 2 Mean SEP/DFP Peak To Heart Use (mmHg) (sec/min) Peak Rate (mmHg) (bpm) Aortic 15:45 LV AO 11 18 20 90 123/4,10 103/69(85) Calculations Valve P-P Mean Valve Index Valve Source Name Gradient Area Flow (cm2) Aortic 20 11 20 11 Snapshots Pre Cath Intra NCS Post Cath Vital Signs Time Heart Resp SPO2 etCO2 NIBP Rhythm Pain Sedation Rate (ipm) (%) (mmHg) (mmHg) Status Level (bpm) 15:17:47 86 13 94 0 116/73(95) NSR 0 (11) 10(A) , No pain 15:22:10 87 11 94 42.8 111/72(87) NSR 0 (11) 10(A) , No pain 15:26:29 86 13 93 25.5 113/69(92) NSR 0 (11) 10(A) , No pain 15:30:50 85 14 97 41.3 112/70(81) NSR 0 (11) 9(A) , No pain 15:35:08 88 16 97 38.3 102/72(93) NSR 0 (11) 9(A) , No pain 15:39:24 88 11 97 39.1 119/74(89) NSR 0 (11) 9(A) , No pain 15:43:44 85 14 97 40.6 106/72(88) NSR 0 (11) 9(A) , No pain 15:48:00 89 13 97 18 111/75(92) NSR 0 (11) 10(A) , No pain 15:52:18 89 14 98 40.5 113/70(96) NSR 0 (11) 10(A) , No pain Medications Time Medication Route Dose Verified Delivered Reason Notes Effe ctiveness by by 15:26:52 Oxygen etCO2 2 Fabrice Buffie used for Nasal l/min James Helm RN procedure cannula 15:26:59 Lidocaine 2% added 20ml Fabrice Buffie used for to vial James Helm RN procedure field 15:27:06 Heparin Flush added 2 Fabrice Buffie used for Bag to bags James Helm qa specialist (1000units/500ml field NS) 15:27:15 0.9% NaCl I.V. 100 Fabrice Buffie Per ml/hr James Helm RN physician 15:27:39 Versed I.V. 1 mg Fabrice Buffie for James Helm RN sedation 15:27:45 Fentanyl I.V. [address] [facility] James Helm RN sedation 15:33:55 Versed I.V. 1 mg Fabrice Indu for James Helm RN sedation 15:33:59 Fentanyl I.V. [address] [facility] James Helm RN sedation Procedure Log Time Note 11:54:05 Informed consent obtained and on chart 11:58:22 Stress Test: yes; abnormal inferior and apical 11:58:29 Admit Source: Other 11:58:32 Procedure Status Elective Heart Cath (OP). 11:58:34 Time tracking: Regular hours (M-F 7:00 - 5:00) 11:58:38 Plan of Care:Hemodynamics will remain stable., Cardiac rhythm will remain stable., Comfort level will be maintained., Respiratory function will remain adequate., Patient/ family verbilizes understanding of procedure., Procedure tolerated without complication., Recovers from procedure without complications.. 11:58:49 Arrival Date: 02/26/2020 12:00:00 AM 11:58:59 Insurance Payor : Private health insurance 11:59:24 Patient Height : 69 inches 11:59:32 Patient Weight : 284 lbs 14:54:42 Diagnostic Cath Status : Elective 15:03:26 Indu Helm RN sent for patient. Start room use. 15:10:06 Lab Result : eGFR NONAFRICAN 90 ml/min 15:10:06 Lab Result : Creatinine 0.9 mg/dl 15:10:06 Lab Result : BUN 26 mg/dl 15:10:06 Lab Result : Hemoglobin 15.2 g/dl 15:10:20 Patient received from Pre/Post Procedure Room to CCL 1 Alert and oriented. Tansferred to table in Supine position. 15:10:21 Warm blankets applied, and yasmin hugger turned on for patient comfort. 15:10:21 Correct patient and procedure confirmed by team. 15:10:22 ECG and BP/O2 sat monitors applied to patient. 15:16:34 Baseline sample Acquired. 15:16:34 Vital chart was started 15:16:38 Rhythm: sinus rhythm 15:16:39 Full Disclosure recording started 15:16:43 H&P Date Dictated: 02/26/2020 Within 30 days and on chart., H&P Addendum completed by physician on day of procedure. (MUST COMPLETE FOR ALL OUTPATIENTS). 15:16:48 Pre-procedure instructions explained to patient. 15:16:49 Pre-op teaching completed and patient verbalized understanding. 15:16:52 Family unavailable. 15:16:53 Patient NPO since Midnight. 15:16:59 Is the patient allergic to Iodine/contrast media? No. 15:17:01 Was the patient premedicated? Yes 15:17:04 Is patient on blood thinner?Yes 15:21:05 Patient diabetic? Yes. 15:21:07 If diabetic: On Metformin? Yes 15:21:10 If on Metformin: Last Dose? 02/25/2020 15:21:14 Previous problem with sedation/anesthesia? No ? 15:21:16 Snore? Yes 15:21:17 Sleep apnea? Yes 15:21:19 Deviated septum? No 15:21:21 Opens mouth fully? Yes 15:21:23 Sticks out tongue? Yes 15:22:11 patient states last dose of Xarelto on 02/23/2020 15:22:15 Dentures? No ? 15:23:32 Lab results completed and on chart. 15:24:30 Right groin area was prepped with chlora-prep and draped in sterile fashion 15:24:32 Alarms reviewed by R. N. 15:24:32 Sharps counted by scrub and verified by R.N. 15:24:33 Physician arrived 15:24:33 --------ALL STOP TIME OUT------ 15:24:34 Final Timeout: patient, procedure, and site verified with staff and physician. All members of the team are in agreement. 15:24:35 Right groin site verified by team. 15:24:39 Fire Safety Assessment: A--An alcohol-based skin anteseptic being used preoperatively., C--Open oxygen or nitrous oxide is being used., D--An ESU, laser, or fiber-optic light is being used. 15:24:42 Physical assessment completed. ASA score P 2 - A patient with mild systemic disease as per Fabrice Ramirez MD. 15:24:51 1) 90+ Normal kidney functon but urine findings or structural abnormalities or genetic trait point to kidney disease. 15:24:54 Maximum allowable contrast dose (3.7 X eGFR X 0.75)250 ml. 15:24:58 Sedation plan: IV Moderate Sedation Medication:Versed, Fentanyl 15:25:07 Use device set Femoral Dx 15:25:09 ACIST Syringe (92869) opened to sterile field. 15:25:09 Bag Decanter (2002S) opened to sterile field. 15:25:09 Medline Cath Pack ([id number]) opened to sterile field. 15:25:11 ACIST Hand Control (08633) opened to sterile field. 15:25:11 ACIST Manifold (99752) opened to sterile field. 15:25:12 DIAGNOSTIC Multipack 5Fr catheter set ([id number]) opened to sterile field. 15:25:12 Tegaderm 4 x 4 (1626W) opened to sterile field. 15:25:14 SHEATH 5FR Willows (CNJ108) opened to sterile field. 15:25:15 EMERALD Guide Wire (211-383) opened to sterile field. 15:26:52 Oxygen 2 l/min etCO2 Nasal cannula was administered by Indu Helm RN; used for procedure; Verbal order read back and verified. 15:26:59 Lidocaine 2% 20ml vial added to field was administered by Indu Helm RN; used for procedure; Verbal order read back and verified. 15:27:06 Heparin Flush Bag (1000units/500ml NS) 2 bags added to field was administered by Indu Helm RN; used for procedure; Verbal order read back and verified. 15:27:15 0.9% NaCl 100 ml/hr I.V. was administered by Indu Helm RN; Per physician; Verbal order read back and verified. 15:27:39 Versed 1 mg I.V. was administered by Indu Helm RN; for sedation; Verbal order read back and verified. 15:27:45 Fentanyl 50 mcg I.V. was administered by Indu Helm RN; for sedation; Verbal order read back and verified. 15:28:42 Procedure started. 15:28:46 Local anesthetic to right femoral artery with Lidocaine 2% by Indu Helm RN.INITIAL ACCESS ONLY 15:30:09 A 6 Fr Short sheath was inserted into the Right Femoral artery 15:32:54 A MULTIPACK JL 4.0 5Fr catheter was advanced over the wire and used for Left Coronary Angiography. 15:33:15 Catheter removed. unable to cannulate vessel. 15:33:55 Versed 1 mg I.V. was administered by Indu Helm RN; for sedation; Verbal order read back and verified. 15:33:58 A DIAGNOSTIC JL 5 5Fr catheter ([id number]) was advanced over the wire and used for Left Coronary Angiography. 15:33:59 Fentanyl 50 mcg I.V. was administered by Indu Helm RN; for sedation; Verbal order read back and verified. 15:34:51 Catheter removed. unable to cannulate vessel. 15:35:07 A DIAGNOSTIC Matteo 110cm 5Fr catheter (152312) was advanced over the wire and used for Left Coronary Angiography. 15:37:17 LCA angiography performed. 15:37:20 Injector settings: Ml/sec: 3, Volume: 6, 15:38:20 Catheter removed. 15:39:26 A DIAGNOSTIC AL1 5Fr catheter ([id number]) was advanced over the wire and used for Right Coronary Angiography. 15:43:28 Catheter removed. unable to cannulate vessel. 15:43:38 A DIAGNOSTIC AL2 5Fr catheter (218454W) was advanced over the wire and used for Right Coronary Angiography. 15:43:47 RCA angiography performed. 15:43:50 Injector settings: Ml/sec: 3, Volume: 6, 15:43:53 Catheter removed. 15:44:01 A MULTIPACK Pigtail 5 Fr catheter was advanced over the wire and used for LV Angiography. 15:45:24 LV hemodynamics recorded. 15:45:26 LV gram done using QUARLES 15:45:29 Injector settings: Ml/sec: 5, Volume: 15, 15:45:38 EF : 55 % 15:48:24 Catheter removed. 15:48:34 Sheath removed intact; hemostasis achieved with Exoseal to the Right Femoral artery. 15:48:36 Procedure ended.(Physican Out) 15:48:56 Fluoroscopy time 06.60 minutes. 15:49:01 Flurop Dose total: 979 15:49:01 Fluoroscopy dose: 979 mGy 15:49:14 Dose Area Product 47384 mGy/cm. 15:49:18 Contrast amount:Isovue 300 93ml. 15:50:04 Maximum allowable dose exceeded? No. 15:50:06 Sharps counted by scrub and verified by R.N. 15:50:08 Insertion/operative site no bleeding no hematoma. 15:50:14 Post-op/insertion site Right Femoral artery dressed using a 4 x 4 and Tegaderm. 15:50:16 Post Procedure Pulses reassessed and unchanged 15:50:25 Post procedure rhythm: unchanged. 15:50:28 Estimated blood loss: 5 ml 15:50:30 Post procedure instruction explained to patient.Patient verbalizes understanding. 15:50:31 Patient needs reinforcement of post procedure teaching. 15:51:31 Procedure type changed to Cath procedure, Diagnostic procedure, LHC, C w/Coronaries, Sedation Charges, Moderate Sedation up to 15 minutes 15:51:33 Procedure and supply charges have been captured, reviewed, submitted and are correct. 15:51:39 Procedure Complication : No complications 15:51:42 Vital chart was stopped 15:51:47 [facility] Findings: MVD- MD will discuss options w/ pt 15:51:49 Operative report dictated upon procedure completion. 15:51:50 See physician's report for complete and final results. 15:52:22 Report given to Pre/Post Procedure Room. 15:52:24 Patient transfered to Pre/Post Procedure Room with Stretcher. 15:52:26 Procedure ended. 15:52:26 Full Disclosure recording stopped 15:52:30 End room use (Document Last) 15:54:29 EXOSEAL 5Fr (EX500) opened to sterile field. 15:54:55 GUIDE 6FR AL 1.0 catheter ([id number]) opened to sterile field. 15:55:39 MICROPUNCTURE 4FR Cook (V33461) opened to sterile field. Device Usage Item Name Manufacture Quantity Catalog Hospital Part Current Minimal Lot# / Number Charge Number Stock Stock Serial# Code ACIST Syringe Acist 1 50800 586083 673712 359592 20 (79317) Medical Systems Inc Bag Decanter Microtek 1 060707 99155 579515 5 () Medical Inc. Medline Cath Medline 1 [id number] 658315 34158 091522 5 Pack ([id number]) ACIST Hand Acist 1 38900 904496 906251 604155 5 Control Medical (69733) Systems Inc ACIST Acist 1 57024 596705 500093 312192 5 Manifold Medical (05145) Systems Inc DIAGNOSTIC Cardinal 1 [id number] 343529 76497 421059 30 Multipack 5Fr Health catheter set (YG7139) Tegaderm 4 x 3M 1 1626W 436591 807220 909390 5 4 (1626W) SHEATH 5FR Terumo 1 JXL849 384705 837162 889925 5 Willows (EHI577) EMERALD Guide Cardinal 1 502-455 031700 080666 534943 5 Wire Health (502-455) MULTIPACK JL Cardinal 1 375225 5 4.0 5Fr Health catheter DIAGNOSTIC JL Cardinal 1 [id number] 685224 276837 103024 5 5 5Fr Health catheter (386571C) DIAGNOSTIC Terumo 1 40-5023 002655 896412 804680 5 Matteo 110cm 5Fr catheter (189242) DIAGNOSTIC Cardinal 1 [id number] 883160 938389 842380 15 AL1 5Fr Health catheter (340537J) DIAGNOSTIC Cardinal 1 111594T 401721 186139 286734 15 AL2 5Fr Health catheter (132299V) MULTIPACK Cardinal 1 304246 5 Pigtail 5 Fr Health catheter EXOSEAL 5Fr Cardinal 1 EX500 599676 138677 944884 10 (EX500) Health GUIDE 6FR AL Medtronic 1 [id number] 682334 72805 370309 1 1.0 catheter (DW3PI90) MICROPUNCTURE Alvaton Medical 1 F89597 375675 054687 717227 5 4FR Alvaton (C73668) Signature Audit [place] Stage Time Signature Unsigned Intra-Procedure 02/26/2020 Coni Verde 3:54:55 PM RT(R) Intra-Procedure 02/26/2020 Indu Helm RN 3:55:39 PM Intra-Procedure 02/26/2020 Fabrice Ramirez MD 3:56:51 PM [facility] [address] [place] [address]
[~2020-02-26 12:46] MED LIST changes: +FLOMAX0.4 MG PO; +GLUCOPHAGE500 MG PO; +MAG-OX 400 MG400 MG PO; +NITROQUICK0.4 MG SL
[2020-02-26 13:23] VITALS: BP 107/80; Ht 177.8 cm; Wt 127.3 kg
[2020-02-26 13:36] LABS: BASOPHILS 0.2 % (0-2); EOSINOPHILS 2.6 % (0-7); HEMATOCRIT 46.6 % (42.0-54.0); HEMOGLOBIN 15.2 g/dL (13.5-17.5); IMMATURE GRANULOCYTES 0.2 % (0-5); LYMPHOCYTES 22.2 % (15-50); MCHC 32.6 g/dL (31.0-37.0); MCV 95.1 fL (80.0-100.0); MEAN PLATELET VOLUME 9.5 fL (7.4-10.4); MONOCYTES 11.4 % (2-11); NEUTROPHILS 63.4 % (40-80); PLATELET COUNT 199 10x3/uL (130-400); RDW 13.6 % (11.5-14.5); WBC 4.6 10x3/uL (4.8-10.8)
[2020-02-26 13:58] LABS: ALT (SGPT) 97 U/L (10-68); CALC OSMOLALITY 287 mosm/kg (275-300); CALCIUM 9.7 mg/dL (8.5-10.1); CARBON DIOXIDE 26.7 mmol/L (21.0-32.0); CHLORIDE - SERUM 101 mmol/L (98-107); CHOL - HDL RATIO 4.9 ratio (2.3-4.9); CHOLESTEROL, TOTAL 233 mg/dL (0-200); CREATININE - SERUM 0.9 mg/dL (0.6-1.3); HDL CHOLESTEROL 48 mg/dL (32-96); LDL CHOLESTEROL 133 mg/dL (0-100); LDL-HDL RATIO 2.8 ratio (1.5-3.5); POTASSIUM - SERUM 4.6 mmol/L (3.5-5.1); SODIUM 136 mmol/L (136-145); TRIGLYCERIDE 260 mg/dL (30-200); UREA NITROGEN 26 mg/dL (7-18); eGFR NON AFRICAN AMERICAN 90 mL/min (90-120)
[2020-02-26 13:59] LABS: GLUCOSE 295 mg/dL (74-106)
--- NOTE | 2020-02-26 16:05 | NUR ---
PT REC'D TO ROOM 4 VIA STRETCHER FROM COORDINATOR SKILL TRAINING PROGRAM. MONITORS ESTAB. SEE SENIOR PAYROLL MANAGER. ALARMS ON AND C/L IN REACH.
--- NOTE | 2020-02-26 16:20 | NUR ---
DR. LÓPEZ IN TO TALK TO PT. R GROIN SITE SOFT, C/D/I, PULSES PALP.
--- NOTE | 2020-02-26 16:50 | NUR ---
PT RESTING QUIETLY, R GROIN SITE SOFT, NO S/S BLEEDING OR HEMATOMA. R FOOT WARM WITH PALP PULSES.
--- NOTE | 2020-02-26 17:15 | NUR ---
R GROIN SITE SOFT, C/D/I. HOB ELEVATED. SANDWICH AND DIET COLA PROVIDED. VSS. C/L IN REACH.
--- NOTE | 2020-02-26 17:47 | NUR ---
R GROIN SITE SOFT, C/D/I. PIV D/C'D INTACT, DSG APPLIED. PT ALLOWED UP TO GET DRESSED.
--- NOTE | 2020-02-26 17:52 | NUR ---
ALL DISCHARGE INSTRUCTIONS REVIEWED WITH PT - INCLUDING RESTRICTIONS, FOLLOW-UP AND RESUMING MEDICATIONS. PT VERBALIZES UNDERSTANDING.. AWAITING PT RIDE TO GET HERE.
== END | disposition home or self-care (01) ==
LOC: D.CATH 12:46
PROVIDERS: ATTEND Internal Medicine Cardiovascular Disease
DX: I25.119 Atherosclerotic heart disease of native coronary artery with unspecified angina pectoris (principal); I10 Essential (primary) hypertension; I82.409 Acute embolism and thrombosis of unspecified deep veins of unspecified lower extremity; R06.09 Other forms of dyspnea